=== PATIENT | male | born 1975 | race Caucasian/White ===

== ENCOUNTER 2018-05-02 18:04 | Inpatient (IN) | payer BC ==
[2018-05-02 19:25] LABS: Urine Appearance Clear; Urine Blood Negative (Negative); Urine Color Straw; Urine Ketones Negative (Negative); Urine Protein Negative (Negative); Urine Specific Gravity 1.001 (1.010-1.030); Urine Urobilinogen Negative (Negative)
[2018-05-02 19:31] LABS: ABS Basophils 0 10^3/ul (0-0.2); ABS Eosinophils 0 10^3/ul (0-0.6); ABS Lymphocytes 2.3 10^3/ul (1.0-4.8); ABS Monocytes 0.6 10^3/ul (0-0.8); ABS Neutrophils 3.9 10^3/ul (1.5-7.7); ABS Nucleated RBC 0 10^3/ul; Eosinophil % 0.5 % (0-6); Hematocrit 47 % (42-52); Hemoglobin 15.9 g/dl (14.0-18.0); Lymphocyte % 33.9 % (25-47); Mean Corpuscular HGB Conc 34 g/dl (31-36); Mean Corpuscular Hemoglobin 31 pg (27-31); Mean Corpuscular Volume 90 fL (80-94); Mean Platelet Volume 8.6 um3 (7.4-10.4); Nucleated Red Blood Cells % 0; Platelet Count 228 10^3/ul (150-450); Red Blood Count 5.18 10^6/ul (4.0-5.4); Red Cell Distribution Width 13 % (10.5-15); White Blood Count 6.9 10^3/ul (3.5-10.8)
[2018-05-02 20:01] LABS: EGFR Non-African American 73.4 (>60)
--- NOTE | 2018-05-02 21:33 | ED ---
Brad Alejo Tiffany, scribed for Paulino Salazar MD on 05/02/18 at 1922 . Psychiatric Complaint - HPI Summary HPI Summary: 42 year old M BIB police 941 to [facility] complains of suicidal ideation that began at 16:00 today, but has since resolved. Symptoms aggravated by nothing. Symptoms alleviated by nothing. Patient reports anger that has since resolved. No hx anxiety or depression. No hx suicidal attempts. - History Of Current Complaint Chief Complaint: EDMentalHealth Time Seen by Provider: 05/02/18 18:55 Hx Obtained From: Patient Onset/Duration: Sudden Onset - at 16:00 today, Resolved Aggravating Factor(s): Nothing Alleviating Factor(s): Nothing - Allergies/Home Medications Home Medications: Home Medications NK [No Home Medications Reported] 05/02/18 [History Confirmed 05/02/18] PMH/Surg Hx/FS Hx/Imm Hx Previously Healthy: No Cardiovascular History: Denies: Hx Hypertension Sensory History: Reports: Hx Contacts or Glasses Opthamlomology History: Reports: Hx Contacts or Glasses Psychiatric History: Denies: Hx Anxiety, Hx Depression, Hx Suicide Attempt - Surgical History Surgery Procedure, Year, and Place: NONE Infectious Disease History: No Infectious Disease History: Denies: Traveled Outside the [place] in Last 30 Days - Family History Known Family History: Positive: Hypertension - Social History Alcohol Use: Daily Hx Substance Use: No Substance Use Type: Reports: None Hx Tobacco Use: Yes Smoking Status (MU): Heavy Every Day Tobacco Smoker Review of Systems Negative: Fever Positive: Other - Suicidal ideation and anger that has since resolved All Other Systems Reviewed And Are Negative: Yes Physical Exam - Summary Physical Exam Summary: VITAL SIGNS: Reviewed. GENERAL: Patient is a well-developed and nourished male who is lying comfortable in the stretcher. Patient is not in any acute respiratory distress. HEAD AND FACE: No signs of trauma. No ecchymosis, hematomas or skull depressions. No sinus tenderness. EYES: PERRLA, EOMI x 2, No injected conjunctiva, no nystagmus. EARS: Hearing grossly intact. Ear canals and tympanic membranes are within normal limits. MOUTH: Oropharynx within normal limits. NECK: Supple, trachea is midline, no adenopathy, no JVD, no carotid bruit, no c- spine tenderness, neck with full ROM. CHEST: Symmetric, no tenderness at palpation LUNGS: Clear to auscultation bilaterally. No wheezing or crackles. CVS: Regular rate and rhythm, S1 and S2 present, no murmurs or gallops appreciated. ABDOMEN: Soft, non-tender. No signs of distention. No rebound no guarding, and no masses palpated. Bowel sounds are normal. EXTREMITIES: FROM in all major joints, no edema, no cyanosis or clubbing. NEURO: Alert and oriented x 3. No acute neurological deficits. Speech is normal and follows commands. SKIN: Dry and warm PSYCH: Denies any suicidal thoughts or plan. No homicidal thoughts or plan. No signs of psychosis or pressure speech. No tangential speech. Triage Information Reviewed: Yes Vital Signs On Initial Exam: Initial Vitals Temp Pulse Resp BP Pulse Ox 99 F 114 18 140/95 98 05/02/18 18:07 05/02/18 18:07 05/02/18 18:07 05/02/18 18:07 05/02/18 18:07 Vital Signs Reviewed: Yes Diagnostics - Vital Signs Vital Signs Temp Pulse Resp BP Pulse Ox 05/02/18 18:07 99 F 114 18 140/95 98 - Laboratory Lab Results: Lab Results 05/02/18 05/02/18 05/02/18 Range/Units 19:14 19:14 19:22 WBC 6.9 (3.5-10.8) 10^3/ul RBC 5.18 (4.0-5.4) 10^6/ul Hgb 15.9 (14.0-18.0) g/dl Hct 47 (42-52) % MCV 90 (80-94) fL MCH 31 (27-31) pg MCHC 34 (31-36) g/dl RDW 13 (10.5-15) % Plt Count 228 (150-450) 10^3/ul MPV 8.6 (7.4-10.4) um3 Neut % (Auto) 56.8 (38-83) % Lymph % (Auto) 33.9 (25-47) % Shelby % (Auto) 8.1 H (0-7) % Eos % (Auto) 0.5 (0-6) % Baso % (Auto) 0.7 (0-2) % Absolute Neuts (auto) 3.9 (1.5-7.7) 10^3/ul Absolute Lymphs (auto) 2.3 (1.0-4.8) 10^3/ul Absolute Monos (auto) 0.6 (0-0.8) 10^3/ul Absolute Eos (auto) 0 (0-0.6) 10^3/ul Absolute Basos (auto) 0 (0-0.2) 10^3/ul Absolute Nucleated RBC 0 10^3/ul Nucleated RBC % 0 Sodium (139-145) mmol/L Potassium (3.5-5.0) mmol/L Chloride (101-111) mmol/L Carbon Dioxide (22-32) mmol/L Anion Gap (2-11) mmol/L BUN (6-24) mg/dL Creatinine (0.67-1.17) mg/dL Est GFR ( Amer) (>60) Est GFR (Non-Af Amer) (>60) BUN/Creatinine Ratio (8-20) Glucose (70-100) mg/dL Calcium (8.6-10.3) mg/dL Total Bilirubin (0.2-1.0) mg/dL AST (13-39) U/L ALT (7-52) U/L Alkaline Phosphatase (34-104) U/L Total Protein (6.4-8.9) g/dL Albumin (3.2-5.2) g/dL Globulin (2-4) g/dL Albumin/Globulin Ratio (1-3) TSH (0.34-5.60) mcIU/mL Urine Color Straw Urine Appearance Clear Urine pH 6.0 (5-9) Ur Specific Talcott 1.001 L (1.010-1.030) Urine Protein Negative (Negative) Urine Ketones Negative (Negative) Urine Blood Negative (Negative) Urine Nitrate Negative (Negative) Urine Bilirubin Negative (Negative) Urine Urobilinogen Negative (Negative) Ur Leukocyte Esterase Negative (Negative) Urine Glucose Negative (Negative) Salicylates (<30) mg/dL Urine Opiates Screen None detected (None Detect) Acetaminophen mcg/mL Ur Barbiturates Screen None detected (None Detect) Ur Phencyclidine Scrn None detected (None Detect) Ur Amphetamines Screen None detected (None Detect) U Benzodiazepines Scrn None detected (None Detect) Urine Cocaine Screen None detected (None Detect) U Cannabinoids Screen None detected (None Detect) Serum Alcohol (<10) mg/dL 05/02/18 Range/Units 19:22 WBC (3.5-10.8) 10^3/ul RBC (4.0-5.4) 10^6/ul Hgb (14.0-18.0) g/dl Hct (42-52) % MCV (80-94) fL MCH (27-31) pg MCHC (31-36) g/dl RDW (10.5-15) % Plt Count (150-450) 10^3/ul MPV (7.4-10.4) um3 Neut % (Auto) (38-83) % Lymph % (Auto) (25-47) % Shelby % (Auto) (0-7) % Eos % (Auto) (0-6) % Baso % (Auto) (0-2) % Absolute Neuts (auto) (1.5-7.7) 10^3/ul Absolute Lymphs (auto) (1.0-4.8) 10^3/ul Absolute Monos (auto) (0-0.8) 10^3/ul Absolute Eos (auto) (0-0.6) 10^3/ul Absolute Basos (auto) (0-0.2) 10^3/ul Absolute Nucleated RBC 10^3/ul Nucleated RBC % Sodium 143 (139-145) mmol/L Potassium 3.8 (3.5-5.0) mmol/L Chloride 109 (101-111) mmol/L Carbon Dioxide 26 (22-32) mmol/L Anion Gap 8 (2-11) mmol/L BUN 8 (6-24) mg/dL Creatinine 1.11 (0.67-1.17) mg/dL Est GFR ( Amer) 94.4 (>60) Est GFR (Non-Af Amer) 73.4 (>60) BUN/Creatinine Ratio 7.2 L (8-20) Glucose 79 (70-100) mg/dL Calcium 9.4 (8.6-10.3) mg/dL Total Bilirubin 0.60 (0.2-1.0) mg/dL AST 32 (13-39) U/L ALT 31 (7-52) U/L Alkaline Phosphatase 56 (34-104) U/L Total Protein 6.8 (6.4-8.9) g/dL Albumin 4.5 (3.2-5.2) g/dL Globulin 2.3 (2-4) g/dL Albumin/Globulin Ratio 2.0 (1-3) TSH 1.55 (0.34-5.60) mcIU/mL Urine Color Urine Appearance Urine pH (5-9) Ur Specific Talcott (1.010-1.030) Urine Protein (Negative) Urine Ketones (Negative) Urine Blood (Negative) Urine Nitrate (Negative) Urine Bilirubin (Negative) Urine Urobilinogen (Negative) Ur Leukocyte Esterase (Negative) Urine Glucose (Negative) Salicylates < 2.50 (<30) mg/dL Urine Opiates Screen (None Detect) Acetaminophen < 15 mcg/mL Ur Barbiturates Screen (None Detect) Ur Phencyclidine Scrn (None Detect) Ur Amphetamines Screen (None Detect) U Benzodiazepines Scrn (None Detect) Urine Cocaine Screen (None Detect) U Cannabinoids Screen (None Detect) Serum Alcohol 71 H (<10) mg/dL Result Diagrams: 05/02/18 19:22 05/02/18 19:22 Lab Statement: Any lab studies that have been ordered have been reviewed, and results considered in the medical decision making process. Course/Dx - Course Assessment/Plan: Blood work w/o a significant abnormality. He is medically cleared. He is awaiting for a MHE. Patient is hemodynamically stable and A+O x 3. Dr. Miller subjective the patient and he requested the patient to be admitted to his service for further workup and management. - Differential Dx/Clinical Impression Differential Diagnosis/HQI/PQRI: Positive: Anxiety, Depression, Suicidal Ideation Provider Diagnosis: Depressive disorder Discharge - Sign-Out/Discharge Documenting (check all that apply): Discharge/Admit/Transfer - Discharge Plan Condition: Stable Disposition: PSYCHIATRIC FACILITY-[facility] Referrals: Denny Penny MD [Primary Care Provider] - - Billing Disposition and Condition Condition: STABLE Disposition: Psychiatric Facility [facility] The documentation as recorded by the Brad mendieta Tiffany accurately reflects the service I personally performed and the decisions made by , Paulino Salazar MD.
[2018-05-03] MEDS ORDERED: Al Hydrox/Mg Hydrox/Simet LIQ* 30 ML UDC PO PRN (10:59)
[2018-05-03] MEDS ORDERED: Acetaminophen TAB* 325 MG PO PRN (10:59)
[2018-05-03] MEDS: Nicotine PATCH 21 MG/24 HR* PATCH TRANSDERM SCH (11:29)
[2018-05-03] MEDS: Sertraline* 25 MG TAB PO SCH (14:57)
[2018-05-03] MEDS: Nicotine Inhaler* 10 MG AMP INH PRN (14:57)
[2018-05-03] MEDS ORDERED: Mouth Piece, Nicotine* 1 EACH CARTRIDGE INH ONE (15:00)
--- NOTE | 2018-05-03 16:48 | HP ---
HISTORY AND PHYSICAL: DATE OF ADMISSION: 05/02/18 IDENTIFYING DATA: Gilbert is a 42-year-old never , employed male from [place] who is being hospitalized on behavioral science unit here because of verbalizing suicidal thoughts. This is his first lifetime psychiatric hospitalization. CHIEF COMPLAINT: "I thought about just ending my life a couple of times and this was somewhat serious." HISTORY OF PRESENT ILLNESS: Gilbert reports that he has been having relationship issues with his girlfriend of 20 plus years and yesterday was very bad that he could not take it anymore, at which point he decided to end his life. Although he owns a handgun, he says even if he had the gun on him, he would not have used it. He just was frustrated and despondent enough to at least think about ending his life. Gilbert reports that for several years now, he has been experiencing episodes of depression lasting for weeks at a time and was manifested as depressed mood, inability to control his crying, feeling helpless and hopeless. A couple of times during those episodes, he thought about suicide, but never made any definitive plan. When he gets depressed, he also gets frustrated very easily, becomes irritable and argumentative, which in his opinion causes a lot of strain in his relationship with his girlfriend. They argue a lot at that time and the consequences are dire at times. They walk out of their relationship and get back to walk out again and it is getting worse as time passes. There are times that he asked his girlfriend who also may be mentally ill and suffers from depression to get help for her and himself. He even lied to her saying that he had seen a therapist in trying to deal with these issues, which causes this problem in their relationship. Today, he denies any episode of hypomania, louis, or psychosis. He never thought about hurting anybody else. PAST PSYCHIATRIC HISTORY: Unremarkable. He never have seen any therapist or psychiatrist in his lifetime. SUBSTANCE ABUSE HISTORY: He denies using any street drugs. The only thing he does is drinks a glass of wine daily and smokes cigarettes. PAST MEDICAL HISTORY: Denies any physical health issues including his heart, lungs, kidney, central nervous system and so on. ALLERGIES: No known drug allergies. FAMILY PSYCHIATRIC HISTORY: Unremarkable. PERSONAL AND SOCIAL HISTORY: He was born in [facility], grew up there in a loving and caring family. His parents are very supportive. After graduating from high school, he went to college and quit after a semester and went to work force. He has been working ever since. 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 He lives in an apartment with his cat where his girlfriend used to visit once or twice a week. No legal issues. No service. PHYSICAL EXAMINATION GENERAL: Gilbert is an average height, healthy appearing and well- developed 42- year-old male, wearing a short and T-shirt. He has marques, but his personal hygiene and grooming appears to be fair. VITAL SIGNS: Shows a blood pressure of 140/95, pulse 114, temperature 99 degrees Fahrenheit, and respirations 18, O2 sat was 98% on room air. HEENT: Head: Atraumatic, normocephalic. Face: Normal with facial hair. Poor oral hygiene, but full with natural teeth. Eyes: PERRLA, EOMI x2. Conjunctivae clear, not injected. Ears: Hearing is grossly normal. Ear canals and tympanic membranes are clean and intact bilaterally. NECK: Supple with midline trachea. No lymphadenopathy. No JVD. No carotid bruits. Thyroid gland normal. CHEST: Normal, symmetric. No tenderness on palpation. LUNGS: Bilaterally good air entry without any wheezing or crackles. CVS: Heart rate is regular. S1 and S2 only. No murmurs or gallops heard. ABDOMEN: Flat, soft, nontender. No indication of organomegaly. No tenderness or rebound tenderness. Bowel sounds positive in all quadrants. EXTREMITIES: Major joints move freely, pulse is good. NEUROLOGICAL: Alert and oriented to time, place, and person. Cranial nerves II through XII are grossly intact. No apparent neurological deficit. MENTAL STATUS EXAMINATION: Gilbert is a healthy-appearing male with fair personal hygiene and grooming. He is alert and oriented to time, place and person. Speech is normal in all spheres. Describes his mood as depressed and sad. Observed affect is tearful and dysphoric. Intelligence appears to be average as evidenced by his vocabulary, educational background and fund of knowledge. Memory function is intact in all spheres. Thought process is logical and goal directed. Thought content is devoid of any delusions or obsessions. Currently denies any suicidal or homicidal ideation. Also denies any perceptual disturbances. Insight and judgement appears to be fair to good. SUMMARY: This 42-year-old male with no prior history of treatment for mental health problems was picked up by police from a camping ground here in [facility] because of sending out text messages to different people verbalizing his intention to end his life. He has been experiencing ups and downs in his relationship with his girlfriend of 20 years, which had a climax yesterday leading up to this incident. DIAGNOSTIC IMPRESSION: Mental Health Diagnosis: Depressive disorder, not otherwise specified. Adjustment disorder with depressed mood, rule out major depressive disorder. Physical Health Diagnosis: None. TREATMENT RECOMMENDATIONS: For now, Gilbert will remain hospitalized on behavioral science unit for his safety and stabilization of acute depressive symptoms. His code status will remain full. While on the unit, supportive milieu, individual and group therapy will be initiated. I have discussed different psychopharmacological options for him and he was agreeable to try anything. However, I have explained to him about risks, benefits and alternatives to Zoloft and he was willing to give it a try. I am going to start him on Zoloft 25 mg once a day beginning today and then will defer any change or addition to his assigned psychiatrist on the unit. [id number]/[facility] #: [id number] NIRMALA
[2018-05-03] MEDS: Nicotine Patch Removal NOTE PATCH OFF SCH (20:44)
[2018-05-04] MEDS: Nicotine PATCH 21 MG/24 HR* PATCH TRANSDERM SCH (09:43)
[2018-05-04] MEDS ORDERED: Mouth Piece, Nicotine* 1 EACH CARTRIDGE ONE (09:45)
[2018-05-04] MEDS: Sertraline* 25 MG TAB PO SCH (09:45)
[2018-05-04] MEDS: Vitamin THERAPEUTIC TAB PO SCH (09:45)
[2018-05-04] MEDS: Nicotine GUM* 2 MG PO PRN ×2 (09:46→16:02)
[2018-05-04] MEDS: Nicotine Inhaler* 10 MG AMP INH PRN ×2 (09:46→16:02)
[2018-05-04] MEDS: Nicotine Patch Removal NOTE PATCH OFF SCH (20:24)
[2018-05-05] MEDS: Nicotine PATCH 21 MG/24 HR* PATCH TRANSDERM SCH (07:55)
[2018-05-05] MEDS: Vitamin THERAPEUTIC TAB PO SCH (08:49)
[2018-05-05] MEDS: Sertraline* 25 MG TAB PO SCH (08:49)
[2018-05-05] MEDS: Nicotine Inhaler* 10 MG AMP INH PRN ×2 (08:49→14:03)
[2018-05-05] MEDS: Nicotine GUM* 2 MG PO PRN ×2 (08:49→14:03)
--- NOTE | 2018-05-05 11:20 | PN ---
MHU: Group Therapy Note - Service Type Service Type: [id number] Group Psychotherapy - Cognitive Behavioral Group Therapy ( CBT):Patient was attentive and participatory in CBT programming this morning, and remained in good behavioral control. Patient expressed positive insights regarding relevant treatment interventions and goals.
--- NOTE | 2018-05-05 11:54 | PN ---
Subjective - Subjective Subjective: Psychiatric Attending Initial progress Note: Dr. Miller's H and P reviewed and I am in agreement with his impression and recommendations. Interviewed patient X 45 minutes today. Patient is reliable historian. In summary, this is a 42 yo single male who lives alone and works as a [employer]. no prior psychiatric treatment. reports onset of depression past few years characterized by sadness, decreased motivation, decreased energy. denies probelms sleeping, denies previous suicidal ideation or attempt. patient reports he has been in relationship for 20 years with girlfriend. They have been having increased conflicts because patient has been increasingly irritable, demanding and possessive of girlfriends time. patient reports has been more irritable, argumentative past few years. easily agitated. patient reports long standing alcohol use. admits to drinking 2 mixed drinks daily . used to "drink much more" but stopped hanging around with particular group that were heavy drinkers. paternal uncle is alcoholic. no other family psychiatric history known. PMH: neg KNDA. Social History: no past trauma, graduated high school only, no legal problems, denies DUI history. denies any other drug use Objective - Appearance Appearance: Well Developed/Nourished Dysmorphic Features: No Hygiene: Normal Grooming: Well Kept - Behavior Psychomotor Activities: Normal Exhibits Abnormal Movement: No - Attitude and Relatedness Attitude and Relatedness: Cooperative Eye Contact: Good - Speech Quality: Unpressured Latencies: Normal Quantity: Appropriate - Mood Patient's Decription of Mood: "Good" - Affect Observed Affect: Depressed - Thought Process Patient's Thought Process: Coherent Thought Content: Yes Passive Wish, No Suicidal Planning, No Homicidal Ideation, No Paranoid Ideation - Sensorium Experiencing Hallucinations: No, Sensorium is Clear Type of Hallucinations: Visual: No, Auditory: No, Command: No - Level of Consciousness Orientation: Yes Intact, Yes Orientated to Time, Yes Orientated to Place, Yes Orientated to Person - Impulse Control Impulse Control: Tenuous - Insight and Judgement Insight and Judgement: Fair - Group Participation Particating in Group Activities: Yes - Medication Management Medication Management Adherence: Yes Assessment - Assessment Clinical Impression: 40 yo with history of polysubstance use, major depressive disrorder, panic disorder patient is homeless. She became addicted to oral opiates 3 years ago after being prescribed pain meds for lower back pain. patient completed inpatient detox followed by outpatient rehab which she completed in January 2018. She was taking suboxone for a few weeks and then relapsed on heroine after running out of suboxone and missing her outpatient appointment. patient has been suicidal and depressed x 4 days. she also stopped taking her psychiatric medication 2 months ago when she relapsed Plan - Plan Treatment Plan: Plan: restart Remeron 15 mg qhs restart Wellbutrin SR 100 mg BID restart Gabapentin 300 mg TID clonidine protocol for opioid withdrawal Medications: Current Medications Acetaminophen (Tylenol Tab*) 650 mg PO Q4H PRN PRN Reason: PAIN or TEMP > 101 F Al Hydrox/Mg Hydrox/Simethicone (Maalox Plus*) 30 ml PO Q4H PRN PRN Reason: INDIGESTION Multivitamins (Theragran Tab*) 1 tab PO DAILY [facility] Last Admin: 05/05/18 08:49 Dose: 1 tab Nicotine (Nicotine Patch 21 Mg/24 Hr*) 1 patch TRANSDERM DAILY [facility] Last Admin: 05/05/18 07:55 Dose: Not Given Nicotine (Nicotine Inhaler*) 10 mg INH Q2H PRN PRN Reason: CRAVINGS Last Admin: 05/05/18 08:49 Dose: 10 mg Nicotine Polacrilex (Nicotine Gum*) 2 mg PO Q2H PRN PRN Reason: CRAVINGS Last Admin: 05/05/18 08:49 Dose: 2 mg Pharmacy Profile Note (Nicotine Patch Removal Note*) 1 note PATCH OFF 2100 [facility] Last Admin: 05/04/18 20:24 Dose: Not Given Sertraline HCl (Zoloft*) 25 mg PO DAILY [facility] Last Admin: 05/05/18 08:49 Dose: 25 mg
[2018-05-05] MEDS ORDERED: Sertraline* 50 MG TAB PO ONE (15:30)
[2018-05-05] MEDS: Nicotine Patch Removal NOTE PATCH OFF SCH (20:18)
[2018-05-06] MEDS: Vitamin THERAPEUTIC TAB PO SCH (08:23)
[2018-05-06] MEDS: Sertraline* 25 MG TAB PO SCH ×2 (08:23→08:24)
[2018-05-06] MEDS: Nicotine GUM* 2 MG PO PRN ×3 (08:24→20:02)
[2018-05-06] MEDS: Nicotine PATCH 21 MG/24 HR* PATCH TRANSDERM SCH (08:42)
--- NOTE | 2018-05-06 10:43 | PN ---
Subjective - Subjective Subjective: Psychiatric Attending Progress Note: Patient reported feeling mild psychomotor agitation this am which only lasted for about one hour after taking Zoloft. the rest of the day he has felt good. Attended all groups. met with his parents who came to visit him after lunch. Patient discussed relationship with girlfriend and was able to process ambivalence and betrayal he felt when he made statement about suicide by text to his girlfriend. Patient was already at camp ground and anticipataed that his girlfriend was going to change her mind and not meet him at the campground like the two had already planned. He regrets making statement and has been consistent in reporting that he was seeking attention and sympathy from . He insists he had not intention of carrying through with threats. I contacted father today who confirmed above account. He agrees son has been depressed but has never heard son make suicidal statements. He also believes that son was attention seeking when he made the statements. He has seen this pattern of saying things impulsively in order to get attention. Father told me that his son called him and gave him all the information about where keys to two gun safes were located. Father took all keys and with family assistance removed both gun safes (one holding rifles, the other holding pistols) from the home. father assured me that son will not have access to the weapons. Objective - Appearance Appearance: Well Developed/Nourished Dysmorphic Features: No Hygiene: Normal Grooming: Fairly Well Kept - Behavior Psychomotor Activities: Normal Exhibits Abnormal Movement: No - Attitude and Relatedness Attitude and Relatedness: Cooperative Eye Contact: Fair - Speech Quality: Unpressured Latencies: Normal Quantity: Appropriate - Mood Patient's Decription of Mood: "Irritable" - Affect Observed Affect: Non-labile - Thought Process Patient's Thought Process: Coherent Thought Content: No Passive Wish, No Suicidal Planning, No Homicidal Ideation, No Paranoid Ideation - Sensorium Experiencing Hallucinations: No, Sensorium is Clear Type of Hallucinations: Visual: No, Auditory: No, Command: No - Level of Consciousness Level of Consciousness: Alert Orientation: Yes Intact, Yes Orientated to Time, Yes Orientated to Place, Yes Orientated to Person - Impulse Control Impulse Control: Tenuous - Insight and Judgement Insight and Judgement: Fair - Group Participation Particating in Group Activities: Yes - Medication Management Medication Management Adherence: Yes Assessment - Assessment Merits Inpatient Hospitalization: For Immediate Safety, For Stabilization, For Discharge Planning Clinical Impression: unspecified depressive disorder Plan - Plan Treatment Plan: Plan: continue Zoloft 75 mg qd discharge planned for tomorrow morning with f/u at mental health clinic in [place] father will pick him up from hospital Medications: Current Medications Acetaminophen (Tylenol Tab*) 650 mg PO Q4H PRN PRN Reason: PAIN or TEMP > 101 F Al Hydrox/Mg Hydrox/Simethicone (Maalox Plus*) 30 ml PO Q4H PRN PRN Reason: INDIGESTION Multivitamins (Theragran Tab*) 1 tab PO DAILY [facility] Last Admin: 05/06/18 08:23 Dose: 1 tab Nicotine (Nicotine Patch 21 Mg/24 Hr*) 1 patch TRANSDERM DAILY [facility] Last Admin: 05/06/18 08:42 Dose: Not Given Nicotine (Nicotine Inhaler*) 10 mg INH Q2H PRN PRN Reason: CRAVINGS Last Admin: 05/05/18 14:03 Dose: 10 mg Nicotine Polacrilex (Nicotine Gum*) 2 mg PO Q2H PRN PRN Reason: CRAVINGS Last Admin: 05/06/18 08:24 Dose: 2 mg Pharmacy Profile Note (Nicotine Patch Removal Note*) 1 note PATCH OFF [address] [facility] Last Admin: 05/05/18 20:18 Dose: Not Given Sertraline HCl (Zoloft*) 25 mg PO DAILY [facility] Last Admin: 05/06/18 08:24 Dose: 25 mg Sertraline HCl (Zoloft*) 75 mg PO DAILY [facility] Last Admin: 05/06/18 08:23 Dose: 75 mg
[2018-05-06] MEDS: Nicotine Inhaler* 10 MG AMP INH PRN ×2 (10:58→20:02)
--- NOTE | 2018-05-06 11:30 | PN ---
MHU: Group Therapy Note - Service Type Service Type: [id number] Group Psychotherapy - Cognitive Behavioral Group Therapy ( CBT):Patient was attentive and participatory in CBT programming this morning, and remained in good behavioral control. Patient expressed positive insights regarding relevant treatment interventions and goals.
[2018-05-07] MEDS: Nicotine Patch Removal NOTE PATCH OFF SCH (00:59)
[2018-05-07 08:38] VITALS: BP 133/83
[2018-05-07] MEDS: Nicotine PATCH 21 MG/24 HR* PATCH TRANSDERM SCH (08:47)
[2018-05-07] MEDS: Sertraline* 25 MG TAB PO SCH ×2 (09:13)
[2018-05-07] MEDS: Vitamin THERAPEUTIC TAB PO SCH (09:13)
--- NOTE | 2018-05-07 11:30 | DS ---
Treatment Course & Assessment Clinical Course & Impression: unspecified depressive disorder Discharge Planning - Discharge Planning Medications: Current Medications Acetaminophen (Tylenol Tab*) 650 mg PO Q4H PRN PRN Reason: PAIN or TEMP > 101 F Al Hydrox/Mg Hydrox/Simethicone (Maalox Plus*) 30 ml PO Q4H PRN PRN Reason: INDIGESTION Multivitamins (Theragran Tab*) 1 tab PO DAILY [facility] Last Admin: 05/07/18 09:13 Dose: 1 tab Nicotine (Nicotine Patch 21 Mg/24 Hr*) 1 patch TRANSDERM DAILY [facility] Last Admin: 05/07/18 08:47 Dose: Not Given Nicotine (Nicotine Inhaler*) 10 mg INH Q2H PRN PRN Reason: CRAVINGS Last Admin: 05/06/18 20:02 Dose: 10 mg Nicotine Polacrilex (Nicotine Gum*) 2 mg PO Q2H PRN PRN Reason: CRAVINGS Last Admin: 05/06/18 20:02 Dose: 2 mg Pharmacy Profile Note (Nicotine Patch Removal Note*) 1 note PATCH OFF 2099 [facility] Last Admin: 05/07/18 00:59 Dose: Not Given Sertraline HCl (Zoloft*) 25 mg PO DAILY [facility] Last Admin: 05/07/18 09:13 Dose: 25 mg Sertraline HCl (Zoloft*) 75 mg PO DAILY [facility] Last Admin: 05/07/18 09:13 Dose: 75 mg Discharge Planning: Prescriptions provided for discharge [] Yes [] No Follow up care details as per social work arrangements. Patient response to discharge plan: [] eager for discharge [] agreeable with discharge plan [] ambivalent about discharge [] disagrees with discharge today
== END 2018-05-07 11:40 | disposition home or self-care (01) | DRG 754 ==
LOC: ED 18:04 → BSU 21:54
PROVIDERS: ADMIT Psychiatry & Neurology Psychiatry; ATTEND Psychiatry & Neurology Psychiatry
PROC: GZHZZZZ Group Psychotherapy (ICD-10-PCS; principal; 2018-05-05)
DX: F32.9 Major depressive disorder, single episode, unspecified (principal); R45.851 Suicidal ideations; F43.21 Adjustment disorder with depressed mood; F17.210 Nicotine dependence, cigarettes, uncomplicated; R45.1 Restlessness and agitation; Z72.89 Other problems related to lifestyle; Z82.49 Family history of ischemic heart disease and other diseases of the circulatory system
CPT/HCPCS: 36415; 80053; 80061; 80307; 80320; 80329; 81003; 83036; 84443; 85025; 90853; 99222; 99232; 99238; 99285; A9270-GY; G0480